=== PATIENT | male | born 2000 | race Caucasian/White ===

== ENCOUNTER 2023-02-18 03:14 | Inpatient (IN) | payer OTHER ==
[2023-02-18] MEDS ORDERED: Lorazepam 2 MG/ML VIAL ONE (03:50)
[2023-02-18] MEDS ORDERED: Ondansetron PF 4 MG/2 ML Vial ONE (03:51)
[2023-02-18 04:07] LABS: INR-International Normal Ratio 1.1; PTT 28.5 sec (22.0-33.0)
[2023-02-18 04:19] LABS: ALT (SGPT) 14 U/L (8-55); AST (SGOT) 16 U/L (5-34); Albumin 4.4 g/dL (3.5-5.0); Alkaline Phosphatase 41 U/L (40-110); Anion Gap 19 mmol/L (10-20); BUN (Urea Nitrogen) 17 mg/dL (8.9-20.6); Bilirubin, Total 0.7 mg/dL (0.2-1.2); Calc. Creatinine Clearance 0 mL/min (70-130); Calcium 10.1 mg/dL (7.8-10.44); Carbon Dioxide 17 mmol/L (22-29); Chloride 99 mmol/L (98-107); Estimated GFR 95; Globulin 3.6 g/dL (2.4-3.5); Glucose 112 mg/dL (70-105); Lipase 27 U/L (8-78); Potassium 3.9 mmol/L (3.5-5.1); Sodium 131 mmol/L (136-145)
[2023-02-18 04:29] LABS: #Monocytes 1.2 10x3/uL (0.0-1.1); #Neutrophils 8.4 10x3/uL (1.5-8.4); %Basophils 0.1 % (0.0-2.0); %Lymphocytes 14.9 % (18.0-47.0); %Monocytes 10.2 % (0.0-10.0); %Neutrophils 74.4 % (40.0-75.0); Hemoglobin 11.3 g/dL (13.5-17.5); Mean Corpuscular HGB CONC 32.3 g/dL (32.0-36.0); Mean Corpuscular Hemoglobin 26.2 pg (27.0-33.0); Mean Corpuscular Volume 81.2 fl (81.2-95.1); Mean Platelet Volume 9.9 fl (7.4-10.4); Platelet Count 744 10x3/uL (150-450); RBC Distribution Width 14.9 % (11.5-14.5); Red Blood Cell (RBC) Count 4.31 10x6/uL (4.32-5.72); White Blood Cell (WBC) Count 11.3 10x3/uL (3.5-10.5)
[2023-02-18] MEDS ORDERED: methylPREDNISolone Sod Succ/PF 125 MG/2 ML VIAL ONE (04:43)
[2023-02-18] MEDS ORDERED: Ondansetron PF 4 MG/2 ML Vial IVP PRN (06:10)
[2023-02-18] MEDS ORDERED: Acetaminophen 325 MG TAB PO PRN (06:10)
[2023-02-18] MEDS ORDERED: Calcium Carbonate 500 MG ChewTAB PO PRN (06:10)
[2023-02-18 07:08] LABS: Lactic Acid 0.6 mmol/L (0.5-2.2)
[2023-02-18 08:41] LABS: Bilirubin Neg (Negative); Blood, Urine 10 (Negative); Glucose, Urine (Dipstick) Normal (Negative); Ketone, Urine Negative (Negative); Leukocyte Negative (Negative); Nitrite Negative (Negative); Protein, Urine (Dipstick) 15 mg/dl (Neg-Trace); Urobilinogen Normal mg/dL (Less than 2)
[2023-02-18 08:42] LABS: Clarity Clear (Clear)
[2023-02-18 08:50] LABS: Bacteria/HPF None Seen HPF (None Seen); RBC/HPF None Seen HPF (0-3); Squamous Epithelial 0-3 HPF (0-3); WBC/HPF None Seen HPF (0-3)
[2023-02-18] MEDS ORDERED: Iopamidol 300 61% 100 ML VIAL FS ONE (09:22)
[2023-02-18] MEDS: Lactated Ringer's 1,000 ML IV SCH ×3 (09:42→21:24)
[2023-02-18] MEDS ORDERED: Mesalamine DR 400 mg Capsule PO SCH (10:00)
[2023-02-18] MEDS: RINVOQ PO SCH (10:11)
[2023-02-18] MEDS ORDERED: FLU VACC QS2023-24(6MOS UP)/PF 60 MCG/0.5 ML SYRINGE IM ONE (12:00)
[2023-02-18] MEDS: methylPREDNISolone Sod Succ/PF 125 MG/2 ML VIAL IVP SCH ×3 (12:21→23:24)
[2023-02-18] MEDS ORDERED: Vancomycin HCl 125 MG Capsule PO SCH (15:15)
[2023-02-18] MEDS: Mesalamine DR 400 mg Capsule PO SCH ×2 (15:34→20:25)
[2023-02-18] MEDS: Vancomycin HCl 125 MG Capsule PO SCH (20:36)
[2023-02-19] MEDS: Vancomycin HCl 125 MG Capsule PO SCH ×4 (02:42→21:01)
[2023-02-19 03:03] LABS: #Monocytes 0.3 10x3/uL (0.0-1.1); #Neutrophils 8.5 10x3/uL (1.5-8.4); %Basophils 0.1 % (0.0-2.0); %Lymphocytes 10.7 % (18.0-47.0); %Monocytes 3.3 % (0.0-10.0); %Neutrophils 85.6 % (40.0-75.0); Hematocrit 28.9 % (38.8-50.0); Hemoglobin 9.1 g/dL (13.5-17.5); Mean Corpuscular HGB CONC 31.5 g/dL (32.0-36.0); Mean Corpuscular Hemoglobin 26.4 pg (27.0-33.0); Mean Corpuscular Volume 83.8 fl (81.2-95.1); Mean Platelet Volume 10.1 fl (7.4-10.4); Platelet Count 497 10x3/uL (150-450); RBC Distribution Width 14.9 % (11.5-14.5); Red Blood Cell (RBC) Count 3.45 10x6/uL (4.32-5.72)
[2023-02-19 03:16] LABS: Anion Gap 13 mmol/L (10-20); BUN (Urea Nitrogen) 19 mg/dL (8.9-20.6); Calc. Creatinine Clearance 159 mL/min (70-130); Calcium 8.6 mg/dL (7.8-10.44); Carbon Dioxide 21 mmol/L (22-29); Chloride 104 mmol/L (98-107); Estimated GFR 133; Glucose 154 mg/dL (70-105); Sodium 134 mmol/L (136-145)
[2023-02-19] MEDS: methylPREDNISolone Sod Succ/PF 125 MG/2 ML VIAL IVP SCH ×4 (05:38→23:44)
[2023-02-19] MEDS: Lactated Ringer's 1,000 ML IV SCH ×3 (05:38→21:12)
[2023-02-19] MEDS: Mesalamine DR 400 mg Capsule PO SCH ×3 (08:16→21:00)
[2023-02-19] MEDS: RINVOQ PO SCH (08:17)
[2023-02-20] MEDS: Vancomycin HCl 125 MG Capsule PO SCH ×4 (03:39→22:54)
[2023-02-20 05:50] LABS: #Monocytes 0.6 10x3/uL (0.0-1.1); #Neutrophils 16.1 10x3/uL (1.5-8.4); %Basophils 0.1 % (0.0-2.0); %Lymphocytes 4.1 % (18.0-47.0); %Monocytes 3.1 % (0.0-10.0); %Neutrophils 91.8 % (40.0-75.0); Hematocrit 28.2 % (38.8-50.0); Hemoglobin 8.9 g/dL (13.5-17.5); Mean Corpuscular HGB CONC 31.6 g/dL (32.0-36.0); Mean Corpuscular Hemoglobin 26.7 pg (27.0-33.0); Mean Corpuscular Volume 84.7 fl (81.2-95.1); Mean Platelet Volume 10.5 fl (7.4-10.4); Platelet Count 498 10x3/uL (150-450); Red Blood Cell (RBC) Count 3.33 10x6/uL (4.32-5.72); White Blood Cell (WBC) Count 17.6 10x3/uL (3.5-10.5)
[2023-02-20 06:01] LABS: Anion Gap 12 mmol/L (10-20); BUN (Urea Nitrogen) 20 mg/dL (8.9-20.6); Calc. Creatinine Clearance 159 mL/min (70-130); Calcium 8.5 mg/dL (7.8-10.44); Carbon Dioxide 23 mmol/L (22-29); Chloride 104 mmol/L (98-107); Estimated GFR 132; Glucose 159 mg/dL (70-105); Potassium 4.1 mmol/L (3.5-5.1); Sodium 135 mmol/L (136-145)
[2023-02-20] MEDS: methylPREDNISolone Sod Succ/PF 125 MG/2 ML VIAL IVP SCH ×3 (06:34→17:49)
[2023-02-20] MEDS: Lactated Ringer's 1,000 ML IV SCH ×3 (06:41→09:36)
[2023-02-20 06:45] VITALS: BMI 19.4
[2023-02-20] MEDS: RINVOQ PO SCH (09:31)
[2023-02-20] MEDS: Mesalamine DR 400 mg Capsule PO SCH ×3 (09:31→22:55)
[2023-02-20] MEDS ORDERED: Saccharomyces boulardii 250 MG CAP PO SCH (17:00)
[2023-02-21] MEDS: methylPREDNISolone Sod Succ/PF 125 MG/2 ML VIAL IVP SCH ×2 (00:12→06:18)
[2023-02-21] MEDS: Lactated Ringer's 1,000 ML IV SCH (01:35)
[2023-02-21] MEDS: Vancomycin HCl 125 MG Capsule PO SCH ×2 (03:43→10:28)
[2023-02-21 07:56] LABS: #Monocytes 0.7 10x3/uL (0.0-1.1); #Neutrophils 13.4 10x3/uL (1.5-8.4); %Basophils 0.1 % (0.0-2.0); %Lymphocytes 4.6 % (18.0-47.0); %Monocytes 4.8 % (0.0-10.0); %Neutrophils 89.9 % (40.0-75.0); Hematocrit 29.9 % (38.8-50.0); Hemoglobin 9.4 g/dL (13.5-17.5); Mean Corpuscular HGB CONC 31.4 g/dL (32.0-36.0); Mean Corpuscular Hemoglobin 26.7 pg (27.0-33.0); Mean Corpuscular Volume 84.9 fl (81.2-95.1); Mean Platelet Volume 10.7 fl (7.4-10.4); Platelet Count 546 10x3/uL (150-450); RBC Distribution Width 15.3 % (11.5-14.5); Red Blood Cell (RBC) Count 3.52 10x6/uL (4.32-5.72); White Blood Cell (WBC) Count 14.9 10x3/uL (3.5-10.5)
[2023-02-21 10:02] VITALS: BP 97/60; TEMP 97.8
[2023-02-21] MEDS: Mesalamine DR 400 mg Capsule PO SCH (10:27)
[2023-02-21] MEDS: Saccharomyces boulardii 250 MG CAP PO SCH ×2 (10:29→10:37)
[2023-02-21] MEDS: RINVOQ PO SCH (10:29)
[2023-02-21 10:36] LABS: Adenovirus F 40-41 Not Detected (Not Detected); Astrovirus Not Detected (Not Detected); C. difficile toxin A+B DETECTED (Not Detected); Campylobacter by PCR Not Detected (Not Detected); Cryptosporidium Not Detected (Not Detected); Cyclospora cayetanensis Not Detected (Not Detected); Entamoeba histolytica Not Detected (Not Detected); Enteroaggregative E. coli Not Detected (Not Detected); Enteropathogenic E. coli Not Detected (Not Detected); Enterotoxigenic E. coli Not Detected (Not Detected); Giardia lamblia Not Detected (Not Detected); Norovirus GI-GII Not Detected (Not Detected); Plesiomonas shigelloides Not Detected (Not Detected); Rotavirus A Not Detected (Not Detected); Salmonella Not Detected (Not Detected); Sapovirus Not Detected (Not Detected); Shiga-toxin-producing E coli Not Detected (Not Detected); Shigella/Enteroinvasive E coli Not Detected (Not Detected); Vibrio Not Detected (Not Detected); Vibrio cholerae Not Detected (Not Detected); Yersinia enterocolitica Not Detected (Not Detected)
== END 2023-02-21 12:57 | disposition short-term general hospital (02) | DRG 872 ==
LOC: CSHERS 03:14 → SUATTDRO 03:14 → CSHIMCU 08:10 → CSHTELE 02-19 10:46
PROVIDERS: ADMIT Internal Medicine; ATTEND Internal Medicine
DX: A41.9 Sepsis, unspecified organism (principal); A04.72 Enterocolitis due to Clostridium difficile, not specified as recurrent; E87.1 Hypo-osmolality and hyponatremia; K51.90 Ulcerative colitis, unspecified, without complications; E87.20 Acidosis, unspecified; Z98.890 Other specified postprocedural states; E86.0 Dehydration
CPT/HCPCS: 36415; 74177; 80048; 80053; 81001; 83605; 83690; 85025; 85610; 85730; 86140; 87040; 87324; 87449; 87493; 87507; 93005; 96374; 96375; J1650; J2060; J2405; J2930; J7120; Q9967